=== PATIENT | female | born 1980 | race Caucasian/White ===

== ENCOUNTER → 2022-10-27 15:08 | Outpatient (CLI) | payer BC, SELFPAY ==
[2022-10-27 15:47] LABS: Basophils % 0.4 % (0.1-2.0); Eosinophils # 0.1 K/mm3 (0.0-0.4); Eosinophils % 1.6 % (0.1-12.0); Hemoglobin 13.9 g/dL (12.2-16.2); Lymphocytes # 1.4 K/mm3 (0.7-4.5); Lymphocytes % 24.4 % (10-50); Mean Corpuscular HGB Conc 33.8 g/dL (31.8-35.4); Mean Corpuscular Hemoglobin 29.6 pg (27.0-31.2); Mean Corpuscular Volume 87.7 fl (81-99); Monocytes # 0.4 K/mm3 (0.1-1.0); Monocytes % 6.7 % (1.7-9.3); Neutrophils # 3.9 K/mm3 (1.8-7.8); Neutrophils % 66.8 % (37.0-80.0); Platelet Count 260 K/mm3 (142-424); Red Blood Count 4.68 M/mm3 (4.20-5.40); Red Cell Distribution Width 12.8 % (11.5-17.5); White Blood Count 5.8 K/mm3 (4.8-10.8)
[2022-10-27 16:26] LABS: Alanine Aminotransferase 83 U/L (12-78); Albumin Level 4.6 g/dl (3.5-5.0); Albumin/Globulin Ratio 1.8 (1.1-1.8); Alkaline Phosphatase 44 U/L (38-126); Anion Gap 17.5 mEq/L (5-15); Aspartate Amino Transferase 70 U/L (14-36); Blood Urea Nitrogen 10 mg/dl (7-17); Calcium 9.3 mg/dl (8.4-10.2); Carbon Dioxide 27 mmol/L (22.0-30.0); Chloride 101 mmol/L (98-107); Chol/HDL Ratio 3.7 (1-3.5); Cholesterol 139 mg/dl (140-200); Estimated Glomerular Filt Rate 92 ml/min (>60); GFR (African American) 112 ML/MIN (>60); Globulin 2.6 g/dL (1.3-3.2); Glucose 143 mg/dl (74-100); HDL Cholesterol 38 mg/dl (40-60); Potassium 4.5 mmoL/L (3.5-5.1); Sodium 141 mmol/L (136-145); Total Protein,Serum 7.2 g/dl (6.3-8.2); Triglycerides 208 mg/dl (30-150); VLDL Cholesterol 42 mg/dL (0-40)
[2022-10-27 16:32] LABS: Bilirubin,Total 0.1 mg/dl (0.2-1.3)
[2022-10-27 16:37] LABS: Direct LDL Cholesterol 75.33 mg/dL (100-129)
[2022-10-27 16:57] LABS: Thyroid Stimulating Hormone 2.78 uIU/mL (0.465-4.68)
== END ==
PROVIDERS: PCP Internal Medicine; Visit Provider Internal Medicine
DX: I10 Essential (primary) hypertension (principal); E78.5 Hyperlipidemia, unspecified; F41.9 Anxiety disorder, unspecified; F32.5 Major depressive disorder, single episode, in full remission; F51.01 Primary insomnia; R53.83 Other fatigue; R06.83 Snoring; M75.102 Unspecified rotator cuff tear or rupture of left shoulder, not specified as traumatic
CPT/HCPCS: 80053; 80061; 84443; 85025

== ENCOUNTER → 2022-11-21 07:37 | Outpatient (CLI) | payer BC, SELFPAY ==
--- NOTE | 2022-11-21 07:44 | US_ITS ---
FINAL REPORT TECHNIQUE: Multiple transverse and longitudinal images CLINICAL HISTORY: RUQ PAIN COMPARISON: None FINDINGS: The gallbladder shows no wall thickening, distention or stone disease. No biliary ductal dilatation is appreciated. No fluid collections are seen. There is increased echogenicity present in the liver compatible with fatty infiltration of the liver. Limited portions of the right kidney are unremarkable. The right kidney measures 9.5 cm in length. IMPRESSION: No evidence of cholelithiasis or biliary obstruction. Fatty infiltration of the liver. Reviewed, Interpreted and Dictated by Luz Tristan MD Transcribed by Gali Hernandez Authenticated and [facility]
[2022-11-21 16:59] LABS: Iron 97 ug/dL (37-170)
[2022-11-21 17:08] LABS: Total Iron Binding Capacity 354 ug/dL (265-497)
[2022-11-22 16:19] LABS: Mitochondrial (M2) Antibody <20.0 Units (0.0-20.0)
[2022-12-10 13:22] LABS: Hep B Core Ab, Total Negative; Hepatitis C Antibody Non Reactive
[2022-12-10 13:23] LABS: Hepatitis B Surf Ab Quant <3.1
== END ==
PROVIDERS: PCP Internal Medicine; Visit Provider Internal Medicine
DX: R10.11 Right upper quadrant pain (principal)
CPT/HCPCS: 36415; 76705; 83540; 83550; 86256; 86704; 86706; 87380